=== PATIENT | female | born 1980 | race Caucasian/White ===

== ENCOUNTER 2018-03-22 19:58 | Emergency (ER) | payer OTHER ==
[~2018-03-22] VITALS: Ht 160 cm; Wt 66.7 kg
[2018-03-22 20:09] VITALS: Ht 160 cm; Wt 66.7 kg
[2018-03-22 21:09] VITALS: BP 123/82
== END 2018-03-22 21:09 | disposition home or self-care (01) ==
LOC: ED 19:58
DX: J06.9 Acute upper respiratory infection, unspecified (principal); H66.92 Otitis media, unspecified, left ear; Z88.0 Allergy status to penicillin

== ENCOUNTER 2019-01-31 09:37 | Emergency (ER) | payer OTHER ==
[~2019-01-31] VITALS: Ht 152.4 cm; Wt 63.5 kg
[2019-01-31 10:24] VITALS: BP 115/85
== END 2019-01-31 10:25 | disposition home or self-care (01) ==
LOC: ED 09:37
DX: J06.9 Acute upper respiratory infection, unspecified (principal); Z88.0 Allergy status to penicillin